=== PATIENT | female | born 1980 | race Caucasian/White ===

== ENCOUNTER 2016-05-08 12:55 | Emergency (ER) | payer OTHER ==
[~2016-05-08] VITALS: Ht 160 cm; Wt 55.7 kg
[~2016-05-08 12:55] MED LIST: FLEXERIL10 MG PO; HYCODAN SYRUP480 ML PO; HYDROXYZINE HCL50 MG PO; MOBIC7.5 MG PO; MOTRIN800 MG PO; TORADOL10 MG PO; TYLENOL WITH C1 EACH PO; VENTOLIN HFA18 GM IH
[2016-05-08 14:18] LABS: ADD MIUA? YES; BILIRUBIN NEGATIVE; BLOOD NEGATIVE; COLOR YELLOW ((YELLOW)); GLUCOSE (STRIP) NEGATIVE; KETONES NEGATIVE; LEUKOCYTES TRACE; NITRITE NEGATIVE; PROTEIN (STRIP) NEGATIVE; SPECIFIC GRAVITY 1.016 (1.000-1.030); UROBILINOGEN 0.2 MG/DL (0.2-1.0)
[2016-05-08 14:23] LABS: BACTERIA RARE /HPF; EPITHELIAL CELLS 1+ /HPF; MUCUS TRACE /LPF; RED BLOOD CELLS 0-5 /HPF (0-5); UCUL ADDED? NO; WHITE BLOOD CELLS 0-5 /HPF (0-5)
[2016-05-08 14:41] LABS: HEMATOCRIT 40.6 % (36.0-46.0); MCH 30.3 PG (29.0-34.0); MCHC 33.3 G/DL (30.0-36.0); MCV 91.2 FL (83-99); PLATELET COUNT 259 K/uL (156-360); RBC DIS.WIDTH-CV 12.2 % (11.8-14.6); RED BLOOD COUNT 4.45 M/uL (3.80-5.20); WHITE BLOOD COUNT 7.7 K/uL (4.1-10.2)
[2016-05-08 14:54] LABS: CHLORIDE 107 mEq/L (99-109); POTASSIUM 3.3 mEq/L (3.7-5.4); SODIUM 142 mEq/L (136-147)
[2016-05-08 14:56] LABS: GLUCOSE 96 mg/dL (70-99)
[2016-05-08 14:57] LABS: ANION GAP 8 MEQ/L (2-14)
[2016-05-08 14:58] LABS: TOTAL BILIRUBIN 0.4 mg/dL (0.0-1.0)
[2016-05-08 15:00] LABS: ALKALINE PHOSPHATASE 71 IU/L (3-129); GFR ESTIMATE (CALCULATED) > 59 mL/min/
[2016-05-08 15:01] LABS: UREA NITROGEN (BUN) 4 mg/dL (9-23)
[2016-05-08] MEDS ORDERED: CIPROFLOXACIN500 M1 PO (15:09)
[2016-05-08] MEDS ORDERED: LEVOTHYROXINE25 MCG PO (15:09)
[2016-05-08] MEDS ORDERED: ALPRAZOLAM0.5 MG PO (15:10)
[2016-05-08 15:12] LABS: QUANTITATIVE HCG < 4.0 MIU/ML
[2016-05-08] MEDS ORDERED: MOTRIN800 MG PO (17:24)
[2016-05-08] MEDS ORDERED: ZOFRAN ODT4 MG PO (17:24)
[2016-05-08 17:33] VITALS: BP 114/65
== END 2016-05-08 17:48 | disposition home or self-care (01) ==
LOC: EME 12:55
DX: R10.32 Left lower quadrant pain (principal); R39.15 Urgency of urination; F17.200 Nicotine dependence, unspecified, uncomplicated
CPT/HCPCS: 74000; 74177; 80053; 81003; 84702; 85027; 99281; 99284; J1885; J2405; J7030

== ENCOUNTER 2017-07-28 02:11 | Inpatient (IN) | payer OTHER ==
[~2017-07-28] VITALS: Ht 160 cm; Wt 55.9 kg
[~2017-07-28 02:11] MED LIST changes: +ALPRAZOLAM0.5 MG PO; +CIPROFLOXACIN500 M1 PO; +LEVOTHYROXINE25 MCG PO; +ZOFRAN ODT4 MG PO
[2017-07-28 03:04] LABS: BASOPHIL (%) 0.9 % (0-1); BASOPHIL COUNT 0.1 K/uL (0-0.1); EOSINOPHIL (%) 3.5 % (0-5); EOSINOPHIL COUNT 0.2 K/uL (0-0.3); HEMATOCRIT 38.8 % (36.0-46.0); HEMOGLOBIN 13.1 G/DL (11.9-15.5); IMMATURE GRANULOCYTE (%) 0.5 % (0.0-0.7); LYMPHOCYTE (%) 45.7 % (15-42); MCH 31.3 PG (29.0-34.0); MCHC 33.8 G/DL (30.0-36.0); MCV 92.6 FL (83-99); MONOCYTE (%) 5.3 % (3-12); MONOCYTE COUNT 0.4 K/uL (0-0.8); NEUTROPHIL (%) 44.1 % (45-76); NEUTROPHIL COUNT 2.9 K/uL (1.8-6.4); PLATELET COUNT 197 K/uL (156-360); RBC DIS.WIDTH-CV 11.9 % (11.8-14.6); RBC DIS.WIDTH-SD 40.6 % (39-53); RED BLOOD COUNT 4.19 M/uL (3.80-5.20); WHITE BLOOD COUNT 6.6 K/uL (4.1-10.2)
[2017-07-28 03:24] LABS: ALBUMIN 3.9 g/dL (3.2-4.8); CHLORIDE 112 mEq/L (99-109); POTASSIUM 3.2 mEq/L (3.7-5.4); SODIUM 144 mEq/L (136-147)
[2017-07-28 03:27] LABS: GLUCOSE 93 mg/dL (70-99)
[2017-07-28 03:29] LABS: TOTAL BILIRUBIN 0.1 mg/dL (0.0-1.0)
[2017-07-28 03:30] LABS: SERUM ETHYL ALCOHOL 171 mg/dL
[2017-07-28 03:31] LABS: ALKALINE PHOSPHATASE 63 IU/L (3-129); CREATININE 0.7 mg/dL (0.6-1.3); GFR ESTIMATE (CALCULATED) > 59 mL/min/
[2017-07-28 03:32] LABS: AST (GOT) 12 IU/L (2-34); UREA NITROGEN (BUN) 5 mg/dL (9-23)
[2017-07-28 03:34] LABS: ALT (GPT) 12 IU/L (3-49); SALICYLATE < 5.0 MG/DL (15-30)
[2017-07-28 03:35] LABS: ACETAMINOPHEN (TYLENOL) < 10 mcg/mL (10-30)
[2017-07-28 03:40] LABS: QUANTITATIVE HCG < 4.0 MIU/ML
[2017-07-28 06:46] LABS: APPEARANCE CLEAR ((CLEAR)); BILIRUBIN NEGATIVE; BLOOD NEGATIVE; COLOR STRAW ((YELLOW)); GLUCOSE (STRIP) NEGATIVE; KETONES NEGATIVE; LEUKOCYTES NEGATIVE; NITRITE NEGATIVE; PROTEIN (STRIP) NEGATIVE; UCUL ADDED? NO; UROBILINOGEN 0.2 MG/DL (0.2-1.0)
[2017-07-28 06:55] LABS: AMPHETAMINE NEGATIVE (500 ng/mL); BENZODIAZEPINES PRESUMPTIVE POSITIVE (150 ng/mL); COCAINE NEGATIVE (150 ng/mL); METHAMPHETAMINE NEGATIVE (500 ng/mL); OPIATES (MORPHINE) NEGATIVE (100 ng/mL); PHENCYCLIDINE NEGATIVE (25 ng/mL); THC CANNABINOIDS NEGATIVE (50 ng/mL)
[2017-07-28 06:56] LABS: BARBITURATES NEGATIVE (200 ng/mL); BUPRENORPHINE NEGATIVE (10 ng/mL); METHADONE NEGATIVE (200 ng/mL); OXYCODONE NEGATIVE (100 ng/mL); PROPOXYPHENE NEGATIVE (300 ng/mL); TRICYCLIC ANTIDEPRESSANTS NEGATIVE (300 ng/mL)
[2017-07-28 07:32] LABS: BENZODIAZEPINES, URINE SCREEN POSITIVE (200 ng/mL)
[2017-07-28 14:00] VITALS: BP 110/73
[2017-07-28 15:45] VITALS: BP 122/82
[2017-07-29 07:54] VITALS: BP 95/45
[2017-07-29 16:00] VITALS: BP 104/55
[2017-07-30 07:51] VITALS: BP 101/58
[2017-07-30] MEDS ORDERED: TRAZODONE HCL50 MG PO (09:05)
[2017-07-30] MEDS ORDERED: ESCITALOPRAM OX10 MG PO (09:05)
== END 2017-07-30 10:28 | disposition home or self-care (01) | DRG 885 ==
LOC: EME → EDBD 02:11 → 1WEST 11:56 → EDOF 11:56 → 1WEST 11:56 → ENRESERV 13:25 → 1WEST 13:49
PROVIDERS: Emergency Medicine
DX: F33.9 Major depressive disorder, recurrent, unspecified (principal); T42.4X2A Poisoning by benzodiazepines, intentional self-harm, initial encounter; T51.0X2A Toxic effect of ethanol, intentional self-harm, initial encounter; R40.0 Somnolence; F10.129 Alcohol abuse with intoxication, unspecified; Y90.6 Blood alcohol level of 120-199 mg/100 ml; F41.9 Anxiety disorder, unspecified; J44.9 Chronic obstructive pulmonary disease, unspecified; E78.5 Hyperlipidemia, unspecified; E03.9 Hypothyroidism, unspecified; G43.909 Migraine, unspecified, not intractable, without status migrainosus; F17.200 Nicotine dependence, unspecified, uncomplicated; F12.11 Cannabis abuse, in remission; F11.11 Opioid abuse, in remission; F14.11 Cocaine abuse, in remission; Z59.9 Problem related to housing and economic circumstances, unspecified; Z63.5 Disruption of family by separation and divorce; Z60.8 Other problems related to social environment; Z86.32 Personal history of gestational diabetes; Z90.49 Acquired absence of other specified parts of digestive tract; Z98.51 Tubal ligation status; Z88.0 Allergy status to penicillin
CPT/HCPCS: 80053; 81003; 84702; 84999; 85025; 90837; 93005; 97150 GO; 97165 GO; 99281; 99285; G0480; J2405; J7030